=== PATIENT | male | born 1950 | race Caucasian/White ===

== ENCOUNTER 2023-09-08 07:15 | Day surgery (SDC) | payer MEDICARE, SELFPAY ==
--- NOTE | 2023-09-08 09:36 | ITS.CL.IMPLP ---
Account Services Manager - Implant Loop
Implant Loop
Procedure Report:
Date of Procedure: September 08, 2023.
Procedure: Insertable Loop Recorder Implant.
Indication: Embolic stroke of unknown source.
Performing physician: Guerrero Hernandez MD, [facility].
Implant: [employer]onic; Reveal LINQII; Model# [id number]; Serial# [id number].
Technique: The patient was prepped and draped in the usual fashion. A time-out was performed. No intravenous sedation was administered. Local anesthetic was applied to the left pre-pectoral subcutaneous tissue. Using the insertion kit an incision
was made left of the midline in the fourth intercostal space and the device was implanted subcutaneously and directed towards the nipple. Hemostasis was excellent. The skin was closed with steri-strips. The estimated blood loss was less than 0.5 ml.
There were no complications. No fluoroscopy. R waves measured 0.47 mV and P waves were visible.
Final Programming: Detections: Afib, tachy at 160 bpm, michele at 30 bpm, pause at 3 sec.
Conclusion: Uncomplicated insertable loop implant.
Recommendation: Routine post-insertable loop care. The device is MRI conditional without a waiting period and up to 3 Allyn.
cc: Francis Lowe MD; All Ledezma MD and Fili Restrepo MD.
== END 2023-09-08 09:58 | disposition home or self-care (01) ==
LOC: CATH 07:15
PROVIDERS: ATTENDING PHYSICIAN Internal Medicine Cardiovascular Disease; FAMILY PHYSICIAN Internal Medicine
DX: Z09 Encounter for follow-up examination after completed treatment for conditions other than malignant neoplasm (principal); Z86.73 Personal history of transient ischemic attack (TIA), and cerebral infarction without residual deficits; I10 Essential (primary) hypertension; Z85.46 Personal history of malignant neoplasm of prostate; Z85.72 Personal history of non-Hodgkin lymphomas; Z87.891 Personal history of nicotine dependence; Z79.02 Long term (current) use of antithrombotics/antiplatelets; Z79.82 Long term (current) use of aspirin; I48.91 Unspecified atrial fibrillation; R00.1 Bradycardia, unspecified
CPT/HCPCS: 93312; 93320; 93325; 33285; C1764

== ENCOUNTER 2024-07-16 11:10 | Emergency (ER) | payer MEDICARE, SELFPAY ==
[2024-07-16 11:15] VITALS: BP 130/72
--- NOTE | 2024-07-16 12:20 | ED.GENMED ---
History of Present Illness
General
Chief Complaint: Rectal Bleeding
Source: patient
Exam Limitations: none
Time Seen by Provider: 07/16/24 11:44
Nursing documentation reviewed up to this point in time: agreed with
History of Present Illness
History of Present Illness:
pt is a 74 y/o M with h/o htn hld, stoke, on asa and plavix
here with c/o dark stools since yesterday
will get some gas pain and then have small amount of stool that is black in color
no aocohol use, nsaids but does take asa
he has never had gastric bleeding before
has had colonoscopy repviously
no abdomina pain, lgihtheadedness, chest pain, shortness of breath, red blood, vomiting blodo
took kayopectate yesterday
thinks that was after the stools turned black
but then wasn't sure
Past History
Past History
ED Past Medical History: CVA, Other (Lymphoma) and Other
ED Past Surgical History: Appendectomy
Social History
Tobacco: Non-smoker
Alcohol: None
Drug: None
Personal:
Living: with family
Review of Systems
Review of Systems
Allergies reviewed?: Yes
All Other Systems: Not applicable
Phy Exam
Physical Exam
Physical Exam:
GENERAL: Alert , in no apparent distress
EYE: pupils equal and reactive
NECK: Supple
ENT: o/p clr, mmm.
CARDIAC: Regular rate and rhythm .
LUNGS: Clear breath sounds bilaterally, no acute respiratory distress, no wheezes/rales/rhonchi
ABDOMEN: Soft, without focal tenderness, no r/g, no cvat, normal bowel sounds
rectal: no bleeding on exam
dark stool, not totally black
HEME NEG.
NEUROLOGICAL: Alert and oriented, no focal neuro deficits
SKIN: Warm and dry, skin intact.
MUSCULOSKELETAL: No edema, well perfused. neg ivan's sign
PSYCH: Normal and appropriate interaction.
Course
Orders/Labs/Results
Orders:
Orders
07/16/24 12:09
Complete Blood Count/With Diff Urgent
Comprehensive Metabolic Panel Urgent
07/16/24 13:24
Abdominal Series [CR Obstruct Series W/pa Chest] Urgent
Comment:
Reason For Exam: loose stool
Abnormal Lab Results
07/16/24
12:09
RBC 4.33 L 10^6/uL
(4.70-6.10)
Hgb 12.8 L g/dL
(13.0-18.0)
MCHC 32.0 L g/dL
(33.0-37.0)
Absolute Lymphs (auto) 1.1 L 10^3/uL
(1.2-3.4)
Lymphocytes % 19.0 L %
(20.5-51.1)
Eosinophils % 8.0 H %
(0-6)
Glucose 103 H mg/dl
(70-99)
Total Protein 5.7 L g/dl
(6.3-8.2)
07/16/24 12:09
07/16/24 12:09
Vital Signs
Initial and Last Documented VS:
Initial Vital Signs
Temp Pulse Resp BP Pulse Ox
36.9 C 75 18 130/72 99
07/16/24 11:15 07/16/24 11:15 07/16/24 11:15 07/16/24 11:15 07/16/24 11:15
Last Documented Vital Signs
Temp Pulse Resp BP Pulse Ox
36.9 C 64 18 112/59 99
07/16/24 11:15 07/16/24 12:41 07/16/24 12:41 07/16/24 12:41 07/16/24 12:41
MDM/Problems Addressed
Differential Diagnosis Includes:
black stool/GI bleed, gastritis, constipation, medical side effect
MDM/Problems Addressed:
74 y/oM
h/o htn, hld, on asa
here with black stool
he has had loose stools for a few days, not signfiicant volume, but with some gas and small amount
he took dose of kaopectate
noticed his stools are now black and was concerned
no diarrhea, abdomialn pain, vomitin blood, fever, chills, h/o previous GIB
pt is well apeparing
nontender abdomen
rectal HEME NEG dark stool
hg basleine 12.8, bun normal
all suggesting this is probably from the kaopectate
xray to r/o severe constipation as caues for looser stool and then anticipate d/c home
no asa no AC.
1430 - xr mild to mod stool, not severe
no obstruction
metamucil
d/c home
*Critical Care Note
Total Time (30-74mins, 75-104mins- exclusive of procedures): Not Applicable
ED Attending Note
-
Portions of this chart may have been created with voice recognition software.� Occasional wrong word or��sound alike� substitutions may have occurred due to the inherent limitations of voice recognition software.
Discharge Plan
Departure
Patient Disposition: Home (Routine Discharge)
Date of Disposition: 07/16/24
Time of Disposition: 14:17
Patient with high blood pressure during this ER visit?: No
Condition: Fair
Discharge Problem:
Dark stools
Instructions: Diarrhea, Adult ED
Prescriptions:
No Action
tamsulosin 0.4 mg Capsule
0.4 mg PO BID
aspirin [Children's Aspirin] 81 mg Tablet,Chewable
81 mg PO DAILY 30 Days Qty: 30 0RF
clopidogrel 75 mg Tablet
75 mg PO DAILY 21 Days Qty: 21 0RF
carvedilol 6.25 mg Tablet
6.25 mg PO BID 30 Days Qty: 60 0RF
atorvastatin 80 mg Tablet
80 mg PO QPM 30 Days Qty: 30 0RF
Theragen Tablet
1 tab PO DAILY
calcium carbonate [Tums] 200 mg calcium (500 mg) Tablet,Chewable
200 mg PO BIDPRN PRN (Reason: gerd)
sacubitril-valsartan [Entresto] 49-51 mg Tablet
1 tab PO BID
Referrals:
All Ledezma MD [Family Provider] - Follow up in 2-3 days
Activity Restrictions/Additional Instructions:
YOUR STOOL TESTED NEGATIVE FOR BLOOD.
TRY THE BRAT DIET (BANANAS, RICE, APPLESAUCE, TOAST) TO HELP WITH YOUR STOOLS
YOUR STOOL TESTED NEGATIVE FOR BLOOD
METAMUCIL ONCE A DAY TO HELP BIND YOUR STOOLS AND KEEP IT SOFT AND NOT CONSTIPATED
FOLLOW UP WITH YOUR FAMILY DOCTOR
AVOID KAOPECTATE, THIS CAN DARKEN STOOLS
RETURN FOR: SEVERE PAIN, FEVER, VOMITING, BLOOD IN YOUR STOOL, BLOOD IN VOMIT OR ANY COCNERNS.
IF THIS CONTINUES HAVE YOUR STOOL RETESTED AT YOUR FAMILY DOCOTR
Interventions
Interventions:
*Risk Screen - Suicide Last Done: 07/16/24 11:15
*General Assessment Last Done: 07/16/24 11:15
*Neglect/Abuse Screening Last Done: 07/16/24 11:15
ED- Fall Risk Assessment Last Done: 07/16/24 12:19
*ED COVID-19 Vaccine History Last Done: 07/16/24 11:15
FS-Rrbnik-Fmcspkpcql Assessment Last Done: 07/16/24 12:19
ED- Cardiac Assessment Last Done: 07/16/24 12:19
ED- Pulmonary Assessment Last Done: 07/16/24 12:19
Discharge Date and Time
Print Language: RUSSIAN
[2024-07-16 12:29] LABS: % Basophils 1.4 % (0-2); % Immature Granulocytes 0.3 % (0-0.5); % Monocytes 8.9 % (1.7-9.3); % Neutrophils 62.4 % (42.2-75.2); Absolute Basophils 0.1 10^3/uL (0-0.2); Absolute Eosinophils 0.5 10^3/uL (0-0.7); Absolute Lymphocytes 1.1 10^3/uL (1.2-3.4); Absolute Monocytes 0.5 10^3/uL (0.1-0.6); Absolute Neutrophils 3.7 10^3/uL (1.4-6.5); Hemoglobin 12.8 g/dL (13.0-18.0); Mean Corpuscular Hgb 29.6 pg (27.0-31.0); Mean Corpuscular Volume 92.4 fL (80.0-94.0); Mean Platelet Volume 10.3 fL (7.4-10.4); Nucleated Red Blood Cells % 0 % (-); Platelet Count 205 10^3/uL (130-400); Red Blood Cell Count 4.33 10^6/uL (4.70-6.10); Red Cell Dist. Width 14.1 % (11.5-14.5); White Blood Cell Count 5.9 10^3/uL (4.8-10.8)
[2024-07-16 12:41] VITALS: BP 112/59
[2024-07-16 12:42] LABS: ALT (SGPT) 22 U/L (0-50); AST (SGOT) 29 U/L (17-59); Albumin 3.9 g/dl (3.5-5.0); Alkaline Phosphatase 99 U/L (38-126); Blood Urea Nitrogen 19 mg/dl (9-20); Calcium 9.3 mg/dl (8.4-10.2); Carbon Dioxide 26 mmol/L (22-30); Chloride 106 mmol/L (98-107); Glucose 103 mg/dl (70-99); Potassium 4.3 mmol/L (3.5-5.1); Sodium 139 mmol/L (135-145); Total Bilirubin 0.9 mg/dl (0.2-1.3); Total Protein 5.7 g/dl (6.3-8.2); eGFR > 60.00
[2024-07-16 14:29] VITALS: BP 127/74
== END 2024-07-16 14:30 | disposition home or self-care (01) ==
LOC: EMR 11:10
PROVIDERS: Physician Assistant; EMERGENCY PHYSICIAN Student in an Organized Health Care Education/Training Program; FAMILY PHYSICIAN Internal Medicine
DX: R19.5 Other fecal abnormalities (principal); I10 Essential (primary) hypertension; E78.5 Hyperlipidemia, unspecified; Z79.02 Long term (current) use of antithrombotics/antiplatelets
CPT/HCPCS: 99284; 74022; 80053; 85025